=== PATIENT | male | born 1950 | race Caucasian/White ===

== ENCOUNTER 2018-02-03 06:04 | Day surgery (SDC) | payer BC ==
[2018-02-02 11:17] VITALS: BMI 35.4
[2018-02-03 06:35] VITALS: BP 159/81; PULSE 66; TEMP 98.3
== END 2018-02-03 07:27 | disposition home or self-care (01) ==
LOC: JASU-SURG 06:04
PROVIDERS: ATTEND Surgery
PROC: 3E013GC Introduction of Other Therapeutic Substance into Subcutaneous Tissue, Percutaneous Approach (ICD-10-PCS; principal; 2018-02-03)
DX: Z53.8 Procedure and treatment not carried out for other reasons (principal)
CPT/HCPCS: 82962

== ENCOUNTER 2018-08-24 15:22 | Emergency (ER) | payer BC | END 2018-08-24 20:55 | disposition home or self-care (01) | LOC: FER 15:22 ==

== ENCOUNTER 2020-04-28 04:32 | Day surgery (SDC) | payer OTHER, BC ==
[2020-04-26 15:41] VITALS: BMI 34.7
[2020-04-28] MEDS ORDERED: LIDOCAINE HCL/PF 1% SDV 5ML VIAL ONE ×2 (07:25→12:33)
[2020-04-28] MEDS ORDERED: DEXAMETHASONE SOD PHOSPHATE/PF 10 MG/ML SDV ONE (12:31)
[2020-04-28] MEDS ORDERED: IOHEXOL 180 MG/1 ML ML IJ ONE (12:57)
[2020-04-28] MEDS ORDERED: LIDOCAINE HCL 1% PRESERVATIVE FREE - 30ML VIAL NR ONE (12:57)
[2020-04-28] MEDS ORDERED: BUPIVACAINE HCL/PF 0.25% (2.5MG/ML) 10 ML VIAL IJ ONE (12:57)
[2020-04-28 13:42] VITALS: TEMP 98
[2020-04-28 15:08] VITALS: BP 166/89; PULSE 92
== END 2020-04-28 15:00 | disposition home or self-care (01) ==
LOC: JASU-SURG 04:32
PROVIDERS: ATTEND Pain Medicine Pain Medicine
PROC: 3E0T33Z Introduction of Anti-inflammatory into Peripheral Nerves and Plexi, Percutaneous Approach (ICD-10-PCS; 2020-04-28)
PROC: 3E0T3BZ Introduction of Anesthetic Agent into Peripheral Nerves and Plexi, Percutaneous Approach (ICD-10-PCS; principal; 2020-04-28 12:00)
DX: G56.40 Causalgia of unspecified upper limb (principal)
CPT/HCPCS: 76000-TC-FY

== ENCOUNTER 2020-05-08 04:40 | Inpatient (IN) | payer OTHER, BC ==
[2020-05-04 14:50] VITALS: BMI 35.1
[2020-05-08] MEDS ORDERED: HEPARIN NA (PORCINE) 5,000 UNITS/ML 1ML VIAL ONE ×2 (07:06→07:49)
[2020-05-08] MEDS ORDERED: LIDOCAINE HCL 1%, 10 MG/ML (20ML VIAL) ONE (07:06)
[2020-05-08] MEDS ORDERED: DESFLURANE GAS 240 ML BOTTLE IH ONE (07:37)
[2020-05-08] MEDS ORDERED: MIDAZOLAM HCL 2 MG/2 ML SINGLE DOSE VIAL ONE (07:49)
[2020-05-08 08:55] LABS: POTASSIUM 3.9 mmol/L (3.5-5.1)
[2020-05-08 08:57] LABS: CALCIUM 8.3 mg/dL (8.5-10.1)
[2020-05-08 09:01] LABS: CREATININE 0.6 mg/dL (0.55-1.3)
[2020-05-08 09:03] LABS: BILIRUBIN,TOTAL 0.7 mg/dL (0.2-1); TOT PROT 7.2 g/dl (6.4-8.2)
[2020-05-08] MEDS ORDERED: PROPOFOL 20 ML ONE (10:21)
[2020-05-08] MEDS ORDERED: ceFAZolin SODIUM 1 GM VIAL ONE (10:53)
[2020-05-08] MEDS ORDERED: LIDOCAINE HCL 1%, 10 MG/ML (20ML VIAL) NR ONE (11:07)
[2020-05-08] MEDS ORDERED: IOVERSOL 320 MG/ML ML IV ONE (11:08)
[2020-05-08] MEDS ORDERED: morphine SULFATE 4 MG/ML VIAL IVPUSH PRN (12:16)
[2020-05-08] MEDS ORDERED: ONDANSETRON 4 MG/2 ML VIAL IVPUSH PRN (12:24)
[2020-05-08] MEDS ORDERED: LACTATED RINGERS SOLUTION 1,000 ML IV SCH ×2 (12:30→18:08)
[2020-05-08] MEDS: HYDROmorphone HCl 2 MG/ML VIAL IVPUSH ONE ×2 (13:45→15:03)
[2020-05-08] MEDS ORDERED: HYDROmorphone HCl 2 MG/ML VIAL ONE (13:45)
[2020-05-08] MEDS: GABAPENTIN 300 MG CAPSULE PO SCH ×2 (15:13→21:24)
[2020-05-08] MEDS ORDERED: metFORMIN HCL 500 MG TABLET (FP) PO SCH (16:30)
[2020-05-08] MEDS ORDERED: VANCOMYCIN 1,000 MG in DEXTROSE 5%-WATER - 250 ML IVPB SCH (17:00)
[2020-05-08] MEDS: INSULIN SLIDING SCALE (NOVOLOG) 1 VIAL SQ SCH ×2 (18:05→21:30)
[2020-05-08] MEDS ORDERED: PIPERACILLIN/TAZOBACTAM 3.375 GM VIAL IVPB ONE (18:08)
[2020-05-08] MEDS ORDERED: DEXTROSE 5%-WATER - 50 ML IVPB ONE (18:08)
[2020-05-08] MEDS ORDERED: traMADol HCL 50 MG TABLET PO PRN (18:11)
[2020-05-08] MEDS ORDERED: ACETAMINOPHEN 325 MG TABLET (FP) PO PRN (18:11)
[2020-05-08] MEDS: PIPERACILLIN/TAZOB 3.375 GM 3.375 GM in DEXTROSE 5%-WATER - 50 ML IVPB SCH (18:14)
[2020-05-08] MEDS: VANCOMYCIN 1 GRAM (PRE-DOCKED) 1,000 MG/250 ML BAG IVPB SCH (18:20)
[2020-05-08] MEDS ORDERED: diphenhydrAMINE HCL 25 MG CAPSULE (FP) PO ONE (21:10)
[2020-05-08] MEDS: HEPARIN NA (PORCINE) 5,000 UNITS/ML 1ML VIAL SQ SCH (21:24)
[2020-05-08] MEDS ORDERED: ATORVASTATIN CA 80 MG TABLET (FP) PO SCH (22:00)
[2020-05-08] MEDS: morphine SULFATE 4 MG/ML VIAL IVPUSH PRN (22:29)
[2020-05-09] MEDS ORDERED: DEXTROSE 5%-WATER - 50 ML IVPB ONE ×2 (00:31→08:51)
[2020-05-09] MEDS ORDERED: PIPERACILLIN/TAZOBACTAM 3.375 GM VIAL IVPB ONE ×2 (00:31→08:51)
[2020-05-09] MEDS: PIPERACILLIN/TAZOB 3.375 GM 3.375 GM in DEXTROSE 5%-WATER - 50 ML IVPB SCH ×2 (01:23→09:01)
[2020-05-09] MEDS: VANCOMYCIN 1 GRAM (PRE-DOCKED) 1,000 MG/250 ML BAG IVPB SCH (04:35)
[2020-05-09] MEDS: morphine SULFATE 4 MG/ML VIAL IVPUSH PRN ×2 (04:40→11:35)
[2020-05-09] MEDS: GABAPENTIN 300 MG CAPSULE PO SCH ×2 (05:53→14:01)
[2020-05-09] MEDS ORDERED: diphenhydrAMINE HCL 25 MG CAPSULE (FP) PO ONE (05:57)
[2020-05-09] MEDS: INSULIN SLIDING SCALE (NOVOLOG) 1 VIAL SQ SCH ×3 (06:19→17:33)
[2020-05-09 07:42] VITALS: PULSE 99
[2020-05-09 08:18] LABS: BASO % 0.3 % (0-2.0); EOS % 1.1 % (0-4.5); HEMATOCRIT 29.9 % (35.4-49); HEMOGLOBIN 9.9 GM/dL (11.7-16.9); LYMPH % 18.9 % (8-40); MCH 26.5 pg (25.7-33.7); MCHC 33.1 g/dl (32.0-35.9); MEAN CELL VOLUME 79.8 fl (80-96); MEAN PLT VOLUME 7.5 fl (7.5-11.1); MONO % 9.9 % (3.8-10.2); NEUT % 69.8 % (42.8-82.8); PLATELET COUNT 347 K/MM3 (134-434); RBC 3.74 M/mm3 (4.00-5.60); RDW 15.9 % (11.9-15.9); WHITE BLOOD COUNT 8.2 K/mm3 (4.0-10.0)
[2020-05-09 08:36] LABS: ALBUMIN 2.9 g/dl (3.4-5.0); BLOOD UREA NITROGEN 15.8 mg/dL (7-18); CALCIUM 8.6 mg/dL (8.5-10.1)
[2020-05-09 08:37] LABS: POTASSIUM 3.9 mmol/L (3.5-5.1)
[2020-05-09 08:39] LABS: CREATININE 0.7 mg/dL (0.55-1.3)
[2020-05-09 08:41] LABS: BILIRUBIN,TOTAL 0.8 mg/dL (0.2-1)
[2020-05-09] MEDS ORDERED: PT OWN MED DRAWER 7, Y5N ONE (08:51)
[2020-05-09] MEDS: HEPARIN NA (PORCINE) 5,000 UNITS/ML 1ML VIAL SQ SCH (09:00)
[2020-05-09] MEDS ORDERED: COLLAGENASE CLOSTRIDIUM HIST. 30 GRAMS TUBE TP SCH (10:00)
[2020-05-09] MEDS ORDERED: LOSARTAN POTASSIUM 50 MG TABLET PO SCH (10:00)
[2020-05-09] MEDS ORDERED: GENTAMICIN SO4 0.1% TOPICAL OINTMENT 15 GM/TUBE TUBE TP SCH (10:00)
[2020-05-09] MEDS ORDERED: ASPIRIN COATED 81 MG TABLET.EC PO SCH (10:00)
[2020-05-09] MEDS ORDERED: POLYETHYLENE GLYCOL 3350 119 GM BTL PO SCH (11:45)
[2020-05-09] MEDS ORDERED: DOCUSATE SODIUM 100 MG CAPSULE (FP) PO SCH (11:45)
[2020-05-09] MEDS ORDERED: diphenhydrAMINE HCL 25 MG CAPSULE (FP) PO PRN (15:30)
[2020-05-09 20:17] VITALS: BP 124/72; TEMP 98.2
[2020-05-09] MEDS ORDERED: SENNOSIDES 8.6MG TABLET (FP) PO SCH (22:00)
== END 2020-05-09 18:31 | disposition left against medical advice (07) | DRG 253 ==
LOC: JASU-SURG 04:40 → J2C 07:50 → J8W 14:23
PROVIDERS: ADMIT Family Medicine; ATTEND Family Medicine
PROC: 0JBN0ZZ Excision of Right Lower Leg Subcutaneous Tissue and Fascia, Open Approach (ICD-10-PCS; 2020-05-08)
PROC: B40GYZZ Plain Radiography of Left Lower Extremity Arteries using Other Contrast (ICD-10-PCS; 2020-05-08)
PROC: B40FYZZ Plain Radiography of Right Lower Extremity Arteries using Other Contrast (ICD-10-PCS; 2020-05-08)
PROC: 047S3ZZ Dilation of Left Posterior Tibial Artery, Percutaneous Approach (ICD-10-PCS; principal; 2020-05-08 07:30)
PROC: 0JBP0ZZ Excision of Left Lower Leg Subcutaneous Tissue and Fascia, Open Approach (ICD-10-PCS; 2020-05-08 07:30)
DX: E11.51 Type 2 diabetes mellitus with diabetic peripheral angiopathy without gangrene (principal); L97.929 Non-pressure chronic ulcer of unspecified part of left lower leg with unspecified severity; L97.919 Non-pressure chronic ulcer of unspecified part of right lower leg with unspecified severity; E11.621 Type 2 diabetes mellitus with foot ulcer; I25.10 Atherosclerotic heart disease of native coronary artery without angina pectoris
CPT/HCPCS: 36415; 76000-TC-FY; 80053; 82962; 83036; 85025; 87040; 87070; 87076; 87186; 87205; 88304-TC; 94760; J1644

== ENCOUNTER 2020-06-01 04:11 | Day surgery (SDC) | payer OTHER, BC ==
[2020-05-31 09:25] VITALS: BMI 34.7
[2020-06-01] MEDS ORDERED: PROPOFOL 20 ML ONE ×5 (06:42→08:21)
[2020-06-01] MEDS ORDERED: KETAMINE HCL 200 MG/20 ML VIAL ONE (06:44)
[2020-06-01] MEDS ORDERED: LIDOCAINE HCL 1%, 10 MG/ML (20ML VIAL) ONE (07:24)
[2020-06-01] MEDS ORDERED: ceFAZolin 2 GRAM PREMIX BAG IVPB ONE (08:20)
[2020-06-01] MEDS ORDERED: LIDOCAINE HCL 1%, 10 MG/ML (20ML VIAL) SQ ONE (08:40)
[2020-06-01 11:09] VITALS: TEMP 98.1
[2020-06-01] MEDS ORDERED: ONDANSETRON 4 MG/2 ML VIAL IVPUSH PRN (11:36)
[2020-06-01] MEDS ORDERED: oxyCODONE HCL 5 MG TABLET PO PRN (11:36)
[2020-06-01 12:42] VITALS: BP 170/65; PULSE 88
== END 2020-06-01 12:00 | disposition home or self-care (01) ==
LOC: JASU-SURG 04:11
PROVIDERS: ATTEND Surgery Vascular Surgery
PROC: 0JBQ0ZZ Excision of Right Foot Subcutaneous Tissue and Fascia, Open Approach (ICD-10-PCS; 2020-06-01)
PROC: 0JBR0ZZ Excision of Left Foot Subcutaneous Tissue and Fascia, Open Approach (ICD-10-PCS; principal; 2020-06-01 07:30)
DX: E11.621 Type 2 diabetes mellitus with foot ulcer (principal); L97.523 Non-pressure chronic ulcer of other part of left foot with necrosis of muscle; L97.519 Non-pressure chronic ulcer of other part of right foot with unspecified severity; I70.263 Atherosclerosis of native arteries of extremities with gangrene, bilateral legs; I10 Essential (primary) hypertension
CPT/HCPCS: 82962; 94760

== ENCOUNTER 2020-10-04 05:17 | Inpatient (IN) | payer OTHER, BC ==
[2020-10-03 12:10] VITALS: BMI 33.2
[2020-10-04] MEDS ORDERED: LIDOCAINE 1%/EPI 1:100000 (20 ML MULTI DOSE VIAL) ONE (11:57)
[2020-10-04] MEDS ORDERED: ceFAZolin SODIUM 1 GM VIAL ONE (12:29)
[2020-10-04] MEDS ORDERED: LIDOCAINE HCL/PF 2% SDV 5ML VIAL ONE (12:29)
[2020-10-04] MEDS ORDERED: ONDANSETRON 4 MG/2 ML VIAL IVPUSH PRN ×2 (13:55→16:49)
[2020-10-04] MEDS ORDERED: oxyCODONE HCL 5 MG TABLET PO PRN (13:55)
[2020-10-04] MEDS ORDERED: ACETAMINOPHEN INJECTION 100 ML IVPB ONE (14:07)
[2020-10-04] MEDS ORDERED: DEXMEDETOMIDINE HCL 200 MCG/2 ML IVPB ONE (14:08)
[2020-10-04] MEDS ORDERED: LIDOCAINE HCL 2% JELLY 10 ML CARTRIDGE ONE (14:33)
[2020-10-04] MEDS ORDERED: ceFAZolin 2 GRAM PREMIX BAG IVPB ONE (14:49)
[2020-10-04] MEDS ORDERED: MINERAL OIL 25 ML OIL TP ONE (15:25)
[2020-10-04] MEDS ORDERED: BACITRACIN 50,000 UNITS VIAL TP ONE (15:30)
[2020-10-04] MEDS ORDERED: PROMETHAZINE HCL 25 MG/1 ML VIAL IVPUSH PRN (16:49)
[2020-10-04] MEDS ORDERED: LACTATED RINGERS SOLUTION 1,000 ML IV SCH (17:00)
[2020-10-04] MEDS: INSULIN SLIDING SCALE (NOVOLOG) 1 VIAL SQ SCH (18:02)
[2020-10-04] MEDS: oxyCODONE HCL 5 MG TABLET PO PRN (21:27)
[2020-10-04] MEDS: metFORMIN HCL 500 MG TABLET (FP) PO SCH (21:28)
[2020-10-05] MEDS: INSULIN SLIDING SCALE (NOVOLOG) 1 VIAL SQ SCH ×3 (06:19→18:01)
[2020-10-05] MEDS ORDERED: PATIENT'S OWN MEDICATION (NON-FORMULARY) (Nifedipine [Nifedipine Er] 60 MG Tab.Er.24) PO SCH (10:00)
[2020-10-05] MEDS ORDERED: PATIENT'S OWN MEDICATION (NON-FORMULARY) (Losartan Potassium [Losartan Potassium] 100 MG T PO SCH (10:00)
[2020-10-05] MEDS: LOSARTAN POTASSIUM 50 MG TABLET PO SCH (10:10)
[2020-10-05] MEDS: NIFEdipine E.R 60 MG TABLET PO SCH (10:10)
[2020-10-05] MEDS: DOCUSATE SODIUM 100 MG CAPSULE (FP) PO SCH (10:10)
[2020-10-05] MEDS: metFORMIN HCL 500 MG TABLET (FP) PO SCH ×2 (10:10→21:55)
[2020-10-05 15:41] LABS: BLOOD UREA NITROGEN 14.8 mg/dL (7-18); CALCIUM 8.5 mg/dL (8.5-10.1)
[2020-10-05 15:45] LABS: CREATININE 0.7 mg/dL (0.55-1.3)
[2020-10-05] MEDS: oxyCODONE HCL 5 MG TABLET PO PRN (21:41)
[2020-10-05] MEDS: ATORVASTATIN CA 80 MG TABLET (FP) PO SCH (21:41)
[2020-10-06 00:37] LABS: URINE APPEARANCE CLEAR; URINE BILIRUBIN NEGATIVE (NEGATIVE); URINE COLOR YELLOW; URINE GLUCOSE (UA) NEGATIVE (NEGATIVE); URINE KETONE NEGATIVE (NEGATIVE); URINE LEUK ESTERASE NEGATIVE (NEGATIVE); URINE NITRITE NEGATIVE (NEGATIVE); URINE PROTEIN NEGATIVE (NEGATIVE)
[2020-10-06] MEDS: metFORMIN HCL 500 MG TABLET (FP) PO SCH ×2 (06:39→21:30)
[2020-10-06] MEDS: INSULIN SLIDING SCALE (NOVOLOG) 1 VIAL SQ SCH ×3 (06:40→16:31)
[2020-10-06 09:20] LABS: HEMATOCRIT 35.6 % (35.4-49); HEMOGLOBIN 11.5 GM/dL (11.7-16.9); MCH 26.3 pg (25.7-33.7); MCHC 32.3 g/dl (32.0-35.9); MEAN CELL VOLUME 81.6 fl (80-96); MEAN PLT VOLUME 7.8 fl (7.5-11.1); PLATELET COUNT 232 10^3/uL (134-434); RBC 4.36 M/mm3 (4.00-5.60); RDW 15.7 % (11.9-15.9); WHITE BLOOD COUNT 5.6 K/mm3 (4.0-10.0)
[2020-10-06 09:40] LABS: CALCIUM 8.7 mg/dL (8.5-10.1)
[2020-10-06 09:41] LABS: ALBUMIN 3.2 g/dl (3.4-5.0); BLOOD UREA NITROGEN 12.9 mg/dL (7-18)
[2020-10-06 09:44] LABS: CREATININE 0.8 mg/dL (0.55-1.3)
[2020-10-06 09:45] LABS: BILIRUBIN,TOTAL 0.6 mg/dL (0.2-1); TOT PROT 6.9 g/dl (6.4-8.2)
[2020-10-06] MEDS: DOCUSATE SODIUM 100 MG CAPSULE (FP) PO SCH (09:51)
[2020-10-06] MEDS: NIFEdipine E.R 60 MG TABLET PO SCH (09:52)
[2020-10-06] MEDS: LOSARTAN POTASSIUM 50 MG TABLET PO SCH (09:52)
[2020-10-06] MEDS: ASCORBIC ACID 250 MG TABLET (FP) PO SCH (21:30)
[2020-10-06] MEDS: ATORVASTATIN CA 80 MG TABLET (FP) PO SCH (21:30)
[2020-10-06] MEDS: ZINC OXIDE 20% TOPICAL OINTMENT 30 GM TUBE TP SCH (21:31)
[2020-10-06] MEDS: oxyCODONE HCL 5 MG TABLET PO PRN (21:35)
[2020-10-07] MEDS: metFORMIN HCL 500 MG TABLET (FP) PO SCH ×2 (06:02→21:44)
[2020-10-07] MEDS: INSULIN SLIDING SCALE (NOVOLOG) 1 VIAL SQ SCH ×3 (06:03→17:09)
[2020-10-07] MEDS: AMINO ACIDS/PROTEIN HYDROLYS 30 ML LIQUID.PKT PO SCH ×2 (08:36→17:53)
[2020-10-07] MEDS ORDERED: PT OWN MED DRAWER 7, Y5N ONE ×2 (09:47→10:46)
[2020-10-07] MEDS: DOCUSATE SODIUM 100 MG CAPSULE (FP) PO SCH (10:05)
[2020-10-07] MEDS: NIFEdipine E.R 60 MG TABLET PO SCH (10:05)
[2020-10-07] MEDS: ASCORBIC ACID 250 MG TABLET (FP) PO SCH ×2 (10:05→21:44)
[2020-10-07] MEDS: MULTIVITAMINS (DAILY MVI) TABLET (FP) PO SCH (10:05)
[2020-10-07] MEDS: LOSARTAN POTASSIUM 50 MG TABLET PO SCH (10:05)
[2020-10-07] MEDS: ZINC OXIDE 20% TOPICAL OINTMENT 30 GM TUBE TP SCH ×2 (10:06→21:56)
[2020-10-07] MEDS ORDERED: NIFEdipine E.R. 90 MG TABLET PO SCH (14:25)
[2020-10-07] MEDS: ATORVASTATIN CA 80 MG TABLET (FP) PO SCH (21:44)
[2020-10-07] MEDS ORDERED: oxyCODONE HCL 5 MG TABLET PO PRN (22:20)
[2020-10-07] MEDS: oxyCODONE HCL 5 MG TABLET PO PRN (22:32)
[2020-10-08] MEDS: metFORMIN HCL 500 MG TABLET (FP) PO SCH ×2 (06:39→22:13)
[2020-10-08] MEDS: INSULIN SLIDING SCALE (NOVOLOG) 1 VIAL SQ SCH ×3 (06:39→17:39)
[2020-10-08] MEDS: AMINO ACIDS/PROTEIN HYDROLYS 30 ML LIQUID.PKT PO SCH ×2 (08:05→18:17)
[2020-10-08 09:00] LABS: BASO % 0.7 % (0-2.0); EOS % 2.8 % (0-4.5); HEMATOCRIT 38.3 % (35.4-49); HEMOGLOBIN 12.4 GM/dL (11.7-16.9); LYMPH % 26.3 % (8-40); MCH 26.1 pg (25.7-33.7); MCHC 32.4 g/dl (32.0-35.9); MEAN CELL VOLUME 80.5 fl (80-96); MEAN PLT VOLUME 7.4 fl (7.5-11.1); MONO % 8.4 % (3.8-10.2); NEUT % 61.8 % (42.8-82.8); PLATELET COUNT 293 10^3/uL (134-434); RBC 4.76 M/mm3 (4.00-5.60); RDW 15.8 % (11.9-15.9); WHITE BLOOD COUNT 8.6 K/mm3 (4.0-10.0)
[2020-10-08 09:13] LABS: INR 1.18 (0.83-1.09); PROTHROMBIN TIME (PATIENT) 14.4 SEC (9.7-13.0)
[2020-10-08 09:15] LABS: ACTIVATED PTT 30.9 SECONDS (25.2-36.5)
[2020-10-08 09:20] LABS: ALBUMIN 3.3 g/dl (3.4-5.0); BLOOD UREA NITROGEN 19.4 mg/dL (7-18); CALCIUM 8.8 mg/dL (8.5-10.1)
[2020-10-08] MEDS ORDERED: PT OWN MED DRAWER 7, Y5N ONE (09:21)
[2020-10-08 09:23] LABS: CREATININE 0.8 mg/dL (0.55-1.3)
[2020-10-08 09:25] LABS: BILIRUBIN,TOTAL 0.6 mg/dL (0.2-1); TOT PROT 7.2 g/dl (6.4-8.2)
[2020-10-08] MEDS: ASCORBIC ACID 250 MG TABLET (FP) PO SCH ×2 (09:33→22:13)
[2020-10-08] MEDS: ZINC OXIDE 20% TOPICAL OINTMENT 30 GM TUBE TP SCH (09:34)
[2020-10-08] MEDS: MULTIVITAMINS (DAILY MVI) TABLET (FP) PO SCH (09:34)
[2020-10-08] MEDS: DOCUSATE SODIUM 100 MG CAPSULE (FP) PO SCH (09:34)
[2020-10-08] MEDS: LOSARTAN POTASSIUM 50 MG TABLET PO SCH (09:34)
[2020-10-08] MEDS: ENOXAPARIN NA (PORCINE) 100 MG/1 ML DISP.SYRIN SQ SCH ×2 (09:55→22:17)
[2020-10-08] MEDS ORDERED: METOPROLOL TARTRATE 25 MG TABLET (FP) PO SCH (10:00)
[2020-10-08] MEDS: ATORVASTATIN CA 80 MG TABLET (FP) PO SCH (22:13)
[2020-10-08] MEDS: METOPROLOL TARTRATE 50 MG TABLET (FP) PO SCH (22:13)
[2020-10-08] MEDS: oxyCODONE HCL 5 MG TABLET PO PRN (22:17)
[2020-10-09] MEDS: INSULIN SLIDING SCALE (NOVOLOG) 1 VIAL SQ SCH ×3 (06:00→16:10)
[2020-10-09] MEDS: metFORMIN HCL 500 MG TABLET (FP) PO SCH ×2 (06:00→22:18)
[2020-10-09] MEDS: ZINC OXIDE 20% TOPICAL OINTMENT 30 GM TUBE TP SCH ×3 (06:12→22:19)
[2020-10-09] MEDS ORDERED: PT OWN MED DRAWER 7, Y5N ONE ×2 (10:24→21:37)
[2020-10-09] MEDS: AMINO ACIDS/PROTEIN HYDROLYS 30 ML LIQUID.PKT PO SCH ×2 (10:28→17:13)
[2020-10-09] MEDS: MULTIVITAMINS (DAILY MVI) TABLET (FP) PO SCH (10:28)
[2020-10-09] MEDS: ASCORBIC ACID 250 MG TABLET (FP) PO SCH ×2 (10:28→22:19)
[2020-10-09] MEDS: METOPROLOL TARTRATE 50 MG TABLET (FP) PO SCH ×2 (10:28→22:19)
[2020-10-09] MEDS: LOSARTAN POTASSIUM 50 MG TABLET PO SCH (10:28)
[2020-10-09] MEDS: DOCUSATE SODIUM 100 MG CAPSULE (FP) PO SCH (10:28)
[2020-10-09] MEDS: ENOXAPARIN NA (PORCINE) 100 MG/1 ML DISP.SYRIN SQ SCH ×2 (10:36→22:18)
[2020-10-09] MEDS ORDERED: ALPRAZolam 1 MG TABLET PO PRN (13:48)
[2020-10-09] MEDS ORDERED: SODIUM PHOSPHATE/NA BIPHOS 133 ML ENEMA PR ONE (20:27)
[2020-10-09] MEDS: ATORVASTATIN CA 80 MG TABLET (FP) PO SCH (22:19)
[2020-10-09] MEDS: oxyCODONE HCL 5 MG TABLET PO PRN (22:19)
[2020-10-10] MEDS: metFORMIN HCL 500 MG TABLET (FP) PO SCH ×2 (06:16→17:02)
[2020-10-10] MEDS: INSULIN SLIDING SCALE (NOVOLOG) 1 VIAL SQ SCH ×3 (06:18→17:12)
[2020-10-10] MEDS ORDERED: ONDANSETRON 4 MG/2 ML VIAL IVPUSH PRN (07:11)
[2020-10-10] MEDS ORDERED: ALPRAZolam 1 MG TABLET PO PRN (07:11)
[2020-10-10] MEDS: AMINO ACIDS/PROTEIN HYDROLYS 30 ML LIQUID.PKT PO SCH ×2 (08:44→17:02)
[2020-10-10] MEDS ORDERED: PT OWN MED DRAWER 7, Y5N ONE ×2 (09:44→21:06)
[2020-10-10] MEDS: POLYETHYLENE GLYCOL (HEALTHYLAX) 3350 17 GM PACKET PO SCH (09:46)
[2020-10-10] MEDS: ASCORBIC ACID 250 MG TABLET (FP) PO SCH ×2 (09:46→22:07)
[2020-10-10] MEDS: METOPROLOL TARTRATE 25 MG TABLET (FP) PO SCH ×2 (09:46→22:07)
[2020-10-10] MEDS: DOCUSATE SODIUM 100 MG CAPSULE (FP) PO SCH (09:46)
[2020-10-10] MEDS: ENOXAPARIN NA (PORCINE) 100 MG/1 ML DISP.SYRIN SQ SCH ×2 (09:46→22:14)
[2020-10-10] MEDS: MULTIVITAMINS (DAILY MVI) TABLET (FP) PO SCH (09:47)
[2020-10-10] MEDS: LOSARTAN POTASSIUM 50 MG TABLET PO SCH (09:47)
[2020-10-10] MEDS: ZINC OXIDE 20% TOPICAL OINTMENT 30 GM TUBE TP SCH ×3 (09:48→22:15)
[2020-10-10 10:26] LABS: HEMATOCRIT 40.3 % (35.4-49); HEMOGLOBIN 13.2 GM/dL (11.7-16.9); MCH 26.5 pg (25.7-33.7); MCHC 32.8 g/dl (32.0-35.9); MEAN CELL VOLUME 80.9 fl (80-96); MEAN PLT VOLUME 7.8 fl (7.5-11.1); PLATELET COUNT 328 10^3/uL (134-434); RBC 4.99 M/mm3 (4.00-5.60); RDW 15.6 % (11.9-15.9); WHITE BLOOD COUNT 8.4 K/mm3 (4.0-10.0)
[2020-10-10 10:37] LABS: INR 1.16 (0.83-1.09); PROTHROMBIN TIME (PATIENT) 14.2 SEC (9.7-13.0)
[2020-10-10 10:50] LABS: CHLORIDE 104 mmol/L (98-107); SODIUM 137 mmol/L (136-145)
[2020-10-10 10:52] LABS: BLOOD UREA NITROGEN 21.7 mg/dL (7-18); CALCIUM 8.9 mg/dL (8.5-10.1)
[2020-10-10 10:53] LABS: ANION GAP 8 MMOL/L (8-16); CO2 25 mmol/L (21-32); GLUCOSE,RANDOM 133 mg/dL (74-106)
[2020-10-10 10:56] LABS: CREATININE 0.8 mg/dL (0.55-1.3)
[2020-10-10] MEDS: oxyCODONE HCL 5 MG TABLET PO PRN (22:07)
[2020-10-10] MEDS: ATORVASTATIN CA 80 MG TABLET (FP) PO SCH (22:07)
[2020-10-11] MEDS: INSULIN SLIDING SCALE (NOVOLOG) 1 VIAL SQ SCH ×3 (06:00→16:40)
[2020-10-11] MEDS: metFORMIN HCL 500 MG TABLET (FP) PO SCH ×2 (06:00→16:40)
[2020-10-11] MEDS: AMINO ACIDS/PROTEIN HYDROLYS 30 ML LIQUID.PKT PO SCH ×2 (07:49→16:40)
[2020-10-11] MEDS ORDERED: PT OWN MED DRAWER 7, Y5N ONE ×2 (10:10→21:01)
[2020-10-11] MEDS: LOSARTAN POTASSIUM 50 MG TABLET PO SCH (10:11)
[2020-10-11] MEDS: POLYETHYLENE GLYCOL (HEALTHYLAX) 3350 17 GM PACKET PO SCH ×2 (10:11→10:18)
[2020-10-11] MEDS: MULTIVITAMINS (DAILY MVI) TABLET (FP) PO SCH (10:11)
[2020-10-11] MEDS: METOPROLOL TARTRATE 25 MG TABLET (FP) PO SCH ×2 (10:12→21:40)
[2020-10-11] MEDS: ZINC OXIDE 20% TOPICAL OINTMENT 30 GM TUBE TP SCH ×2 (10:12→21:41)
[2020-10-11] MEDS: DOCUSATE SODIUM 100 MG CAPSULE (FP) PO SCH (10:12)
[2020-10-11] MEDS: ASCORBIC ACID 250 MG TABLET (FP) PO SCH ×2 (10:12→21:41)
[2020-10-11] MEDS: ENOXAPARIN NA (PORCINE) 100 MG/1 ML DISP.SYRIN SQ SCH ×2 (10:18→21:41)
[2020-10-11] MEDS: oxyCODONE HCL 5 MG TABLET PO PRN (19:04)
[2020-10-11] MEDS: ATORVASTATIN CA 80 MG TABLET (FP) PO SCH (21:40)
[2020-10-12] MEDS: INSULIN SLIDING SCALE (NOVOLOG) 1 VIAL SQ SCH ×3 (06:45→17:06)
[2020-10-12] MEDS: metFORMIN HCL 500 MG TABLET (FP) PO SCH ×2 (06:45→17:32)
[2020-10-12] MEDS: AMINO ACIDS/PROTEIN HYDROLYS 30 ML LIQUID.PKT PO SCH ×2 (08:45→17:32)
[2020-10-12] MEDS ORDERED: PT OWN MED DRAWER 7, Y5N ONE ×2 (09:26→21:02)
[2020-10-12] MEDS: LOSARTAN POTASSIUM 50 MG TABLET PO SCH (09:29)
[2020-10-12] MEDS: POLYETHYLENE GLYCOL (HEALTHYLAX) 3350 17 GM PACKET PO SCH (09:29)
[2020-10-12] MEDS: DOCUSATE SODIUM 100 MG CAPSULE (FP) PO SCH (09:29)
[2020-10-12] MEDS: ENOXAPARIN NA (PORCINE) 100 MG/1 ML DISP.SYRIN SQ SCH ×2 (09:30→21:13)
[2020-10-12] MEDS: ASCORBIC ACID 250 MG TABLET (FP) PO SCH ×2 (09:30→21:14)
[2020-10-12] MEDS: MULTIVITAMINS (DAILY MVI) TABLET (FP) PO SCH (09:30)
[2020-10-12] MEDS: METOPROLOL TARTRATE 25 MG TABLET (FP) PO SCH ×2 (09:30→21:14)
[2020-10-12] MEDS: ZINC OXIDE 20% TOPICAL OINTMENT 30 GM TUBE TP SCH ×2 (17:06→21:14)
[2020-10-12] MEDS: oxyCODONE HCL 5 MG TABLET PO PRN (21:14)
[2020-10-12] MEDS: ATORVASTATIN CA 80 MG TABLET (FP) PO SCH (21:14)
[2020-10-13] MEDS: INSULIN SLIDING SCALE (NOVOLOG) 1 VIAL SQ SCH ×3 (06:04→16:40)
[2020-10-13] MEDS: metFORMIN HCL 500 MG TABLET (FP) PO SCH ×2 (06:10→16:38)
[2020-10-13] MEDS ORDERED: PT OWN MED DRAWER 7, Y5N ONE (08:47)
[2020-10-13] MEDS: MULTIVITAMINS (DAILY MVI) TABLET (FP) PO SCH (09:04)
[2020-10-13] MEDS: AMINO ACIDS/PROTEIN HYDROLYS 30 ML LIQUID.PKT PO SCH ×2 (09:04→16:39)
[2020-10-13] MEDS: POLYETHYLENE GLYCOL (HEALTHYLAX) 3350 17 GM PACKET PO SCH (09:04)
[2020-10-13] MEDS: DOCUSATE SODIUM 100 MG CAPSULE (FP) PO SCH (09:04)
[2020-10-13] MEDS: ENOXAPARIN NA (PORCINE) 100 MG/1 ML DISP.SYRIN SQ SCH ×2 (09:04→22:18)
[2020-10-13] MEDS: ASCORBIC ACID 250 MG TABLET (FP) PO SCH ×2 (09:04→22:18)
[2020-10-13] MEDS: ZINC OXIDE 20% TOPICAL OINTMENT 30 GM TUBE TP SCH ×2 (09:05→22:19)
[2020-10-13] MEDS: SERTRALINE HCL 25 MG TABLET (FP) PO SCH (09:05)
[2020-10-13] MEDS: LOSARTAN POTASSIUM 50 MG TABLET PO SCH (09:05)
[2020-10-13] MEDS: ATORVASTATIN CA 80 MG TABLET (FP) PO SCH (22:18)
[2020-10-13] MEDS: oxyCODONE HCL 5 MG TABLET PO PRN (22:21)
[2020-10-13] MEDS: VANCOMYCIN 1 GRAM (PRE-DOCKED) 1,000 MG/250 ML BAG IVPB SCH (23:10)
[2020-10-14] MEDS: metFORMIN HCL 500 MG TABLET (FP) PO SCH ×2 (06:17→17:08)
[2020-10-14] MEDS: INSULIN SLIDING SCALE (NOVOLOG) 1 VIAL SQ SCH ×3 (06:19→17:08)
[2020-10-14] MEDS: AMINO ACIDS/PROTEIN HYDROLYS 30 ML LIQUID.PKT PO SCH ×2 (08:06→17:08)
[2020-10-14] MEDS: VANCOMYCIN 1 GRAM (PRE-DOCKED) 1,000 MG/250 ML BAG IVPB SCH ×3 (08:06→22:03)
[2020-10-14] MEDS ORDERED: PT OWN MED DRAWER 7, Y5N ONE ×2 (10:33→21:47)
[2020-10-14] MEDS: LOSARTAN POTASSIUM 50 MG TABLET PO SCH (10:52)
[2020-10-14] MEDS: SERTRALINE HCL 25 MG TABLET (FP) PO SCH (10:52)
[2020-10-14] MEDS: ASCORBIC ACID 250 MG TABLET (FP) PO SCH ×2 (10:52→21:49)
[2020-10-14] MEDS: MULTIVITAMINS (DAILY MVI) TABLET (FP) PO SCH (10:52)
[2020-10-14] MEDS: DOCUSATE SODIUM 100 MG CAPSULE (FP) PO SCH (10:52)
[2020-10-14] MEDS: ENOXAPARIN NA (PORCINE) 100 MG/1 ML DISP.SYRIN SQ SCH ×2 (10:53→21:49)
[2020-10-14] MEDS: POLYETHYLENE GLYCOL (HEALTHYLAX) 3350 17 GM PACKET PO SCH (10:53)
[2020-10-14] MEDS: ZINC OXIDE 20% TOPICAL OINTMENT 30 GM TUBE TP SCH ×2 (10:54→21:49)
[2020-10-14] MEDS: diphenhydrAMINE HCL 25 MG CAPSULE (FP) PO PRN (11:35)
[2020-10-14] MEDS: ATORVASTATIN CA 80 MG TABLET (FP) PO SCH (21:49)
[2020-10-15] MEDS: INSULIN SLIDING SCALE (NOVOLOG) 1 VIAL SQ SCH ×3 (06:06→17:08)
[2020-10-15] MEDS: metFORMIN HCL 500 MG TABLET (FP) PO SCH ×2 (06:09→17:08)
[2020-10-15 08:09] LABS: HEMATOCRIT 36.4 % (35.4-49); HEMOGLOBIN 11.8 GM/dL (11.7-16.9); MCH 26.3 pg (25.7-33.7); MCHC 32.5 g/dl (32.0-35.9); MEAN CELL VOLUME 81.1 fl (80-96); PLATELET COUNT 238 10^3/uL (134-434); RBC 4.49 M/mm3 (4.00-5.60); RDW 15.4 % (11.9-15.9); WHITE BLOOD COUNT 6.6 K/mm3 (4.0-10.0)
[2020-10-15 08:26] LABS: CALCIUM 8.9 mg/dL (8.5-10.1)
[2020-10-15 08:27] LABS: ALBUMIN 3.4 g/dl (3.4-5.0); BLOOD UREA NITROGEN 15.4 mg/dL (7-18); MAGNESIUM 2.1 mg/dL (1.8-2.4)
[2020-10-15 08:30] LABS: CREATININE 0.7 mg/dL (0.55-1.3); PHOSPHOROUS 3.9 mg/dL (2.5-4.9)
[2020-10-15 08:31] LABS: BILIRUBIN,TOTAL 0.4 mg/dL (0.2-1); TOT PROT 6.9 g/dl (6.4-8.2)
[2020-10-15] MEDS ORDERED: PT OWN MED DRAWER 7, Y5N ONE (09:09)
[2020-10-15] MEDS: AMINO ACIDS/PROTEIN HYDROLYS 30 ML LIQUID.PKT PO SCH ×2 (09:11→17:54)
[2020-10-15] MEDS: VANCOMYCIN 1 GRAM (PRE-DOCKED) 1,000 MG/250 ML BAG IVPB SCH ×2 (09:12→22:13)
[2020-10-15] MEDS: DOCUSATE SODIUM 100 MG CAPSULE (FP) PO SCH (09:15)
[2020-10-15] MEDS: LOSARTAN POTASSIUM 50 MG TABLET PO SCH (09:15)
[2020-10-15] MEDS: POLYETHYLENE GLYCOL (HEALTHYLAX) 3350 17 GM PACKET PO SCH ×2 (09:16→09:24)
[2020-10-15] MEDS: ENOXAPARIN NA (PORCINE) 100 MG/1 ML DISP.SYRIN SQ SCH ×2 (09:16→09:24)
[2020-10-15] MEDS: ASCORBIC ACID 250 MG TABLET (FP) PO SCH ×2 (09:16→22:13)
[2020-10-15] MEDS: MULTIVITAMINS (DAILY MVI) TABLET (FP) PO SCH (09:16)
[2020-10-15] MEDS: SERTRALINE HCL 25 MG TABLET (FP) PO SCH (09:17)
[2020-10-15] MEDS: ZINC OXIDE 20% TOPICAL OINTMENT 30 GM TUBE TP SCH ×2 (09:17→22:13)
[2020-10-15] MEDS ORDERED: APIXABAN 5 MG TABLET PO SCH ×2 (10:00)
[2020-10-15] MEDS: APIXABAN 5 MG TABLET PO SCH (22:13)
[2020-10-15] MEDS: ATORVASTATIN CA 80 MG TABLET (FP) PO SCH (22:13)
[2020-10-15] MEDS: oxyCODONE HCL 5 MG TABLET PO PRN (22:15)
[2020-10-16] MEDS: INSULIN SLIDING SCALE (NOVOLOG) 1 VIAL SQ SCH ×3 (06:38→17:39)
[2020-10-16] MEDS: metFORMIN HCL 500 MG TABLET (FP) PO SCH ×2 (06:43→17:40)
[2020-10-16 08:12] LABS: HEMATOCRIT 35.2 % (35.4-49); HEMOGLOBIN 11.8 GM/dL (11.7-16.9); MCH 26.7 pg (25.7-33.7); MCHC 33.4 g/dl (32.0-35.9); MEAN CELL VOLUME 79.8 fl (80-96); MEAN PLT VOLUME 7.8 fl (7.5-11.1); PLATELET COUNT 221 10^3/uL (134-434); RBC 4.42 M/mm3 (4.00-5.60); RDW 15.9 % (11.9-15.9); WHITE BLOOD COUNT 6.8 K/mm3 (4.0-10.0)
[2020-10-16 08:35] LABS: BLOOD UREA NITROGEN 17.3 mg/dL (7-18); CALCIUM 8.8 mg/dL (8.5-10.1)
[2020-10-16 08:39] LABS: CREATININE 0.7 mg/dL (0.55-1.3)
[2020-10-16] MEDS: AMINO ACIDS/PROTEIN HYDROLYS 30 ML LIQUID.PKT PO SCH ×2 (08:41→17:40)
[2020-10-16] MEDS: VANCOMYCIN 1 GRAM (PRE-DOCKED) 1,000 MG/250 ML BAG IVPB SCH ×2 (08:41→21:32)
[2020-10-16] MEDS ORDERED: PT OWN MED DRAWER 7, Y5N ONE ×4 (09:48→22:48)
[2020-10-16] MEDS: MULTIVITAMINS (DAILY MVI) TABLET (FP) PO SCH (09:52)
[2020-10-16] MEDS: APIXABAN 5 MG TABLET PO SCH ×2 (09:52→21:31)
[2020-10-16] MEDS: LOSARTAN POTASSIUM 50 MG TABLET PO SCH (09:52)
[2020-10-16] MEDS: DOCUSATE SODIUM 100 MG CAPSULE (FP) PO SCH (09:52)
[2020-10-16] MEDS: SERTRALINE HCL 25 MG TABLET (FP) PO SCH (09:52)
[2020-10-16] MEDS: POLYETHYLENE GLYCOL (HEALTHYLAX) 3350 17 GM PACKET PO SCH (09:53)
[2020-10-16] MEDS: ASCORBIC ACID 250 MG TABLET (FP) PO SCH ×2 (09:53→22:52)
[2020-10-16] MEDS: ZINC OXIDE 20% TOPICAL OINTMENT 30 GM TUBE TP SCH ×2 (09:53→22:51)
[2020-10-16] MEDS: ATORVASTATIN CA 80 MG TABLET (FP) PO SCH (21:31)
[2020-10-16] MEDS: oxyCODONE HCL 5 MG TABLET PO PRN (21:34)
[2020-10-17] MEDS: INSULIN SLIDING SCALE (NOVOLOG) 1 VIAL SQ SCH ×3 (06:11→17:25)
[2020-10-17] MEDS: metFORMIN HCL 500 MG TABLET (FP) PO SCH ×2 (06:13→17:22)
[2020-10-17] MEDS ORDERED: PT OWN MED DRAWER 7, Y5N ONE ×3 (09:11→21:35)
[2020-10-17] MEDS: VANCOMYCIN 1 GRAM (PRE-DOCKED) 1,000 MG/250 ML BAG IVPB SCH ×2 (09:41→20:26)
[2020-10-17] MEDS: AMINO ACIDS/PROTEIN HYDROLYS 30 ML LIQUID.PKT PO SCH ×2 (09:41→17:22)
[2020-10-17] MEDS: DOCUSATE SODIUM 100 MG CAPSULE (FP) PO SCH (09:42)
[2020-10-17] MEDS: MULTIVITAMINS (DAILY MVI) TABLET (FP) PO SCH (09:42)
[2020-10-17] MEDS: LOSARTAN POTASSIUM 50 MG TABLET PO SCH (09:42)
[2020-10-17] MEDS: SERTRALINE HCL 25 MG TABLET (FP) PO SCH (09:42)
[2020-10-17] MEDS: APIXABAN 5 MG TABLET PO SCH ×2 (09:42→21:49)
[2020-10-17] MEDS: ASCORBIC ACID 250 MG TABLET (FP) PO SCH ×2 (09:42→21:49)
[2020-10-17] MEDS: ZINC OXIDE 20% TOPICAL OINTMENT 30 GM TUBE TP SCH ×2 (09:43→21:51)
[2020-10-17] MEDS: POLYETHYLENE GLYCOL (HEALTHYLAX) 3350 17 GM PACKET PO SCH (09:43)
[2020-10-17] MEDS: ATORVASTATIN CA 80 MG TABLET (FP) PO SCH (21:49)
[2020-10-17] MEDS: oxyCODONE HCL 5 MG TABLET PO PRN (21:49)
[2020-10-17] MEDS: diphenhydrAMINE HCL 25 MG CAPSULE (FP) PO PRN (23:32)
[2020-10-18 06:01] VITALS: PULSE 77
[2020-10-18] MEDS: INSULIN SLIDING SCALE (NOVOLOG) 1 VIAL SQ SCH ×2 (06:03→12:00)
[2020-10-18] MEDS: metFORMIN HCL 500 MG TABLET (FP) PO SCH (06:12)
[2020-10-18] MEDS: AMINO ACIDS/PROTEIN HYDROLYS 30 ML LIQUID.PKT PO SCH (08:39)
[2020-10-18] MEDS: VANCOMYCIN 1 GRAM (PRE-DOCKED) 1,000 MG/250 ML BAG IVPB SCH (08:39)
[2020-10-18] MEDS ORDERED: PT OWN MED DRAWER 7, Y5N ONE ×2 (09:45→11:45)
[2020-10-18] MEDS: MULTIVITAMINS (DAILY MVI) TABLET (FP) PO SCH (09:50)
[2020-10-18] MEDS: DOCUSATE SODIUM 100 MG CAPSULE (FP) PO SCH (09:51)
[2020-10-18] MEDS: SERTRALINE HCL 25 MG TABLET (FP) PO SCH (09:51)
[2020-10-18] MEDS: LOSARTAN POTASSIUM 50 MG TABLET PO SCH (09:51)
[2020-10-18] MEDS: APIXABAN 5 MG TABLET PO SCH (09:51)
[2020-10-18] MEDS: ZINC OXIDE 20% TOPICAL OINTMENT 30 GM TUBE TP SCH (09:51)
[2020-10-18] MEDS: POLYETHYLENE GLYCOL (HEALTHYLAX) 3350 17 GM PACKET PO SCH (09:54)
[2020-10-18] MEDS: ASCORBIC ACID 250 MG TABLET (FP) PO SCH (11:40)
[2020-10-18 15:46] VITALS: BP 128/76; TEMP 98.1
== END 2020-10-18 16:40 | disposition home or self-care (01) | DRG 264 ==
LOC: JASUSAT 05:17 → JASU-SURG 05:17 → J8W 19:11 → JASUSAT 19:12 → J8W 19:12
PROVIDERS: ADMIT Family Medicine; ATTEND Family Medicine
PROC: 0JBN0ZZ Excision of Right Lower Leg Subcutaneous Tissue and Fascia, Open Approach (ICD-10-PCS; 2020-10-04)
PROC: 0HRKX74 Replacement of Right Lower Leg Skin with Autologous Tissue Substitute, Partial Thickness, External Approach (ICD-10-PCS; 2020-10-04)
PROC: 0HRLXK3 Replacement of Left Lower Leg Skin with Nonautologous Tissue Substitute, Full Thickness, External Approach (ICD-10-PCS; 2020-10-04)
PROC: 0HBHXZZ Excision of Right Upper Leg Skin, External Approach (ICD-10-PCS; 2020-10-04)
PROC: 0JBP0ZZ Excision of Left Lower Leg Subcutaneous Tissue and Fascia, Open Approach (ICD-10-PCS; principal; 2020-10-04 14:00)
DX: I83.018 Varicose veins of right lower extremity with ulcer other part of lower leg (principal); L97.818 Non-pressure chronic ulcer of other part of right lower leg with other specified severity; L97.828 Non-pressure chronic ulcer of other part of left lower leg with other specified severity; I50.32 Chronic diastolic (congestive) heart failure; I83.028 Varicose veins of left lower extremity with ulcer other part of lower leg; E11.51 Type 2 diabetes mellitus with diabetic peripheral angiopathy without gangrene; I25.10 Atherosclerotic heart disease of native coronary artery without angina pectoris; E78.5 Hyperlipidemia, unspecified; E66.9 Obesity, unspecified; Z68.33 Body mass index [BMI] 33.0-33.9, adult; I48.91 Unspecified atrial fibrillation; K21.9 Gastro-esophageal reflux disease without esophagitis; I45.10 Unspecified right bundle-branch block; I11.0 Hypertensive heart disease with heart failure; Z95.5 Presence of coronary angioplasty implant and graft
CPT/HCPCS: 36415; 80048; 80053; 80061; 81003; 82550; 82570; 82962; 83036; 83721; 83735; 84100; 84156; 84443; 84484; 85025; 85027; 85379; 85610; 85730; 87070; 87186; 87205; 88304-TC; 93005; 93010; 93225; 93226; 93970-TC; 94010; 94760; 97116-GP; 97161-GP; C9803; G0480; J0131; U0003; U0005

== ENCOUNTER 2020-12-20 04:33 | Day surgery (SDC) | payer OTHER, BC ==
[2020-12-19 14:33] VITALS: BMI 34.0
[2020-12-20] MEDS ORDERED: MIDAZOLAM HCL 2 MG/2 ML SINGLE DOSE VIAL ONE (11:56)
[2020-12-20] MEDS ORDERED: PROPOFOL 20 ML ONE (11:56)
[2020-12-20] MEDS ORDERED: MINERAL OIL 25 ML OIL TP ONE (12:06)
[2020-12-20] MEDS ORDERED: ceFAZolin SODIUM 1 GM VIAL IVPB ONE (12:25)
[2020-12-20] MEDS ORDERED: ceFAZolin SODIUM 1 GM VIAL ONE (12:26)
[2020-12-20] MEDS ORDERED: DEXAMETHASONE SOD PHOSPHATE 4 MG/1 ML VIAL ONE (12:32)
[2020-12-20] MEDS ORDERED: ONDANSETRON 4 MG/2 ML VIAL ONE (12:32)
[2020-12-20] MEDS ORDERED: oxyCODONE HCL 5 MG TABLET PO PRN (13:43)
[2020-12-20] MEDS ORDERED: ONDANSETRON 4 MG/2 ML VIAL IVPUSH PRN (13:43)
[2020-12-20] MEDS: LACTATED RINGERS SOLUTION 1,000 ML IV SCH (16:28)
[2020-12-20] MEDS ORDERED: ATORVASTATIN CA 80 MG TABLET (FP) PO SCH (22:00)
[2020-12-20] MEDS: oxyCODONE HCL 10 MG SUSTAINED ACTING TABLET PO SCH (22:44)
[2020-12-21] MEDS: LACTATED RINGERS SOLUTION 1,000 ML IV SCH (00:15)
[2020-12-21] MEDS ORDERED: metFORMIN HCL 500 MG TABLET (FP) PO SCH (07:00)
[2020-12-21] MEDS ORDERED: PT OWN MED DRAWER 7, Y5N ONE (09:45)
[2020-12-21] MEDS: oxyCODONE HCL 10 MG SUSTAINED ACTING TABLET PO SCH (09:50)
[2020-12-21] MEDS ORDERED: LOSARTAN 50MG/HCTZ 12.5MG 1 TAB PO SCH (10:00)
[2020-12-21 14:31] VITALS: BP 162/86; PULSE 84; TEMP 98.5
== END 2020-12-21 15:41 | disposition home or self-care (01) ==
LOC: JASUSAT 04:33 → J8W 16:16 → JASUSAT 12-21 15:41
PROVIDERS: ATTEND Plastic Surgery
PROC: 0HBLXZZ Excision of Left Lower Leg Skin, External Approach (ICD-10-PCS; 2020-12-20)
PROC: 0JBP0ZZ Excision of Left Lower Leg Subcutaneous Tissue and Fascia, Open Approach (ICD-10-PCS; 2020-12-20)
PROC: 0HRLX74 Replacement of Left Lower Leg Skin with Autologous Tissue Substitute, Partial Thickness, External Approach (ICD-10-PCS; principal; 2020-12-20 11:30)
DX: S81.802A Unspecified open wound, left lower leg, initial encounter (principal); L76.82 Other postprocedural complications of skin and subcutaneous tissue; Z98.890 Other specified postprocedural states; Y83.2 Surgical operation with anastomosis, bypass or graft as the cause of abnormal reaction of the patient, or of later complication, without mention of misadventure at the time of the procedure; Y82.8 Other medical devices associated with adverse incidents; Y92.9 Unspecified place or not applicable
CPT/HCPCS: 82962; 94760

== ENCOUNTER 2021-06-11 12:21 | Emergency (ER) | payer OTHER, BC ==
[2021-06-11 12:53] VITALS: BP 151/82; PULSE 94; TEMP 97.8; BMI 35.4
[2021-06-11] MEDS ORDERED: DIPHTH,PERTUSS(ACELL),TET 0.5 ML DISP.SYRIN IM ONE ×2 (13:41→14:13)
[2021-06-11] MEDS ORDERED: ACETAMINOPHEN 325 MG TABLET (FP) PO ONE (13:57)
[2021-06-11] MEDS ORDERED: ACETAMINOPHEN 325 MG TABLET (FP) ONE (14:13)
== END 2021-06-11 16:24 | disposition home or self-care (01) ==
LOC: JER 12:21
PROC: 3E0234Z Introduction of Serum, Toxoid and Vaccine into Muscle, Percutaneous Approach (ICD-10-PCS; principal; 2021-06-11)
DX: S00.03XA Contusion of scalp, initial encounter (principal); W22.8XXA Striking against or struck by other objects, initial encounter
CPT/HCPCS: 70450-TC; 71046-TC-FY; 72125-TC; 90471; 90715; 99284-25

== ENCOUNTER 2022-03-05 04:13 | Day surgery (SDC) | payer OTHER, BC ==
[2022-03-04 08:55] VITALS: BMI 36.9
[2022-03-05] MEDS ORDERED: MIDAZOLAM HCL 2 MG/2 ML SINGLE DOSE VIAL ONE (14:41)
[2022-03-05] MEDS ORDERED: FENTANYL CITRATE/PF 50 MCG/ML VIAL ONE ×2 (14:41→15:02)
[2022-03-05] MEDS ORDERED: KETAMINE HCL 500 MG/10 ML VIAL ONE (14:41)
[2022-03-05] MEDS ORDERED: SUCCINYLCHOLINE CHLORIDE 200 MG/10 ML SYRINGE ONE (14:45)
[2022-03-05] MEDS ORDERED: ACETAMINOPHEN INJECTION 100 ML IVPB ONE (15:05)
[2022-03-05] MEDS ORDERED: BUPIVACAINE HCL/PF 0.25% (2.5MG/ML) 10 ML VIAL ONE (15:11)
[2022-03-05] MEDS ORDERED: ONDANSETRON 4 MG/2 ML VIAL IVPUSH PRN (15:23)
[2022-03-05] MEDS ORDERED: ceFAZolin SODIUM 1 GM VIAL IVPB ONE (15:40)
[2022-03-05] MEDS ORDERED: BUPIVACAINE HCL/PF 0.25% (2.5MG/ML) 10 ML VIAL IJ ONE ×2 (16:05)
[2022-03-05] MEDS ORDERED: LIDO 2%/EPI 1:200000 PRESRVFRE (20 ML SDVIAL) INF ONE ×2 (16:05)
[2022-03-05 18:07] VITALS: TEMP 97.2
[2022-03-05 18:41] VITALS: RESP 20
[2022-03-05 18:46] VITALS: BP 164/92; PULSE 67
== END 2022-03-05 18:55 | disposition home or self-care (01) ==
LOC: JASUSAT 04:13
PROVIDERS: ATTEND Plastic Surgery
PROC: 0HRLX74 Replacement of Left Lower Leg Skin with Autologous Tissue Substitute, Partial Thickness, External Approach (ICD-10-PCS; 2022-03-05)
PROC: 0HRKX74 Replacement of Right Lower Leg Skin with Autologous Tissue Substitute, Partial Thickness, External Approach (ICD-10-PCS; 2022-03-05)
PROC: 0HBKXZZ Excision of Right Lower Leg Skin, External Approach (ICD-10-PCS; 2022-03-05)
PROC: 0JBP0ZZ Excision of Left Lower Leg Subcutaneous Tissue and Fascia, Open Approach (ICD-10-PCS; principal; 2022-03-05 14:00)
PROC: 0JBN0ZZ Excision of Right Lower Leg Subcutaneous Tissue and Fascia, Open Approach (ICD-10-PCS; 2022-03-05 14:00)
DX: L97.919 Non-pressure chronic ulcer of unspecified part of right lower leg with unspecified severity (principal); L97.929 Non-pressure chronic ulcer of unspecified part of left lower leg with unspecified severity
CPT/HCPCS: 82962; 88304-TC; 88342-TC; 94760

== ENCOUNTER 2023-09-11 10:30 | Inpatient (IN) | payer OTHER, BC ==
[2023-09-11 12:11] LABS: BASO % 0.5 % (0-2.0); EOS % 1.1 % (0-4.5); HEMATOCRIT 50.4 % (35.4-49); HEMOGLOBIN 16.7 GM/dL (11.7-16.9); LYMPH % 29.8 % (8-40); MCH 28.7 pg (25.7-33.7); MCHC 33.1 g/dl (32.0-35.9); MEAN CELL VOLUME 86.6 fl (80-96); MONO % 8.4 % (3.8-10.2); NEUT % 60.2 % (42.8-82.8); PLATELET COUNT 220 10^3/uL (134-434); RBC 5.81 M/mm3 (4.00-5.60); RDW 14.9 % (11.9-15.9); WHITE BLOOD COUNT 9.6 K/mm3 (4.0-10.0)
[2023-09-11] MEDS ORDERED: ACETAMINOPHEN INJECTION 100 ML IVPB ONE (12:14)
[2023-09-11 12:20] LABS: INR 1.13 (0.83-1.09); PROTHROMBIN TIME (PATIENT) 12.7 SEC (9.7-13.0)
[2023-09-11] MEDS: ACETAMINOPHEN 1000 MG/100 ML BAG IVPB ONE (12:21)
[2023-09-11 12:23] LABS: ACTIVATED PTT 33.4 SECONDS (25.2-36.5)
[2023-09-11 12:28] LABS: POTASSIUM 4.2 mmol/L (3.5-5.1)
[2023-09-11 12:31] LABS: BLOOD UREA NITROGEN 19.8 mg/dL (7-18); CALCIUM 9.6 mg/dL (8.5-10.1)
[2023-09-11 12:32] LABS: ALBUMIN 4.1 g/dl (3.4-5.0)
[2023-09-11] MEDS ORDERED: PIPERACILLIN/TAZOB 4.5 GM 4.5 GM/100 ML BAG IVPB ONE (12:32)
[2023-09-11 12:35] LABS: CREATININE 0.9 mg/dL (0.55-1.3)
[2023-09-11 12:38] LABS: BILIRUBIN,TOTAL 1.3 mg/dL (0.2-1)
[2023-09-11] MEDS: PIPERACILLIN/TAZOB 4.5 GM 4.5 GM in DEXTROSE 5%-WATER - 100 ML IVPB ONE (12:46)
[2023-09-11] MEDS ORDERED: VANCOMYCIN 1 GRAM (PRE-DOCKED) 1,000 MG/250 ML BAG IVPB ONE (13:12)
[2023-09-11] MEDS ORDERED: FUROSEMIDE 40 MG TABLET (FP) ONE (13:13)
[2023-09-11] MEDS: FUROSEMIDE 40 MG TABLET (FP) PO SCH (13:23)
[2023-09-11] MEDS: VANCOMYCIN 1,000 MG in DEXTROSE 5%-WATER - 250 ML IVPB ONE (13:23)
[2023-09-11 15:10] VITALS: RESP 18; BMI 35.7
[2023-09-11] MEDS: ACETAMINOPHEN 325 MG TABLET (FP) PO PRN (16:13)
[2023-09-11] MEDS: INSULIN ASPART SLIDING SCALE (NOVOLOG) 1 VIAL SQ SCH (16:39)
[2023-09-11] MEDS: COLLAGENASE CLOSTRIDIUM HIST. 30 GRAMS TUBE TP SCH (17:54)
[2023-09-11] MEDS: PIPERACILLIN/TAZOB 3.375 GM 3.375 GM in DEXTROSE 5%-WATER - 50 ML IVPB SCH (17:54)
[2023-09-11] MEDS: DOXYCYCLINE HYCLATE 100 MG CAPSULE PO SCH (17:54)
[2023-09-11] MEDS: ATORVASTATIN CA 80 MG TABLET (FP) PO SCH (21:47)
[2023-09-12 08:59] LABS: BASO % 0.3 % (0-2.0); EOS % 1.1 % (0-4.5); MCH 28.6 pg (25.7-33.7); MCHC 33.4 g/dl (32.0-35.9); MEAN CELL VOLUME 85.8 fl (80-96); MEAN PLT VOLUME 8.2 fl (7.5-11.1); NEUT % 59.6 % (42.8-82.8); PLATELET COUNT 193 10^3/uL (134-434); RBC 5.94 M/mm3 (4.00-5.60); RDW 15.1 % (11.9-15.9); WHITE BLOOD COUNT 9.1 K/mm3 (4.0-10.0)
[2023-09-12 09:16] LABS: POTASSIUM 4.2 mmol/L (3.5-5.1)
[2023-09-12 09:24] LABS: ALBUMIN 3.8 g/dl (3.4-5.0); BLOOD UREA NITROGEN 21.7 mg/dL (7-18)
[2023-09-12 09:25] LABS: BILIRUBIN,TOTAL 1.4 mg/dL (0.2-1); TOT PROT 7.7 g/dl (6.4-8.2)
[2023-09-12 09:27] LABS: CREATININE 0.9 mg/dL (0.55-1.3)
[2023-09-12] MEDS ORDERED: SACUBITRIL/VALSARTAN 49 MG-51 MG TABLET PO SCH ×2 (10:00)
[2023-09-12] MEDS: ASPIRIN COATED 81 MG TABLET.EC PO SCH (10:04)
[2023-09-12] MEDS: EMPAGLIFLOZIN (JARDIANCE) 25 MG TABLET PO SCH (10:05)
[2023-09-12 12:32] VITALS: BP 157/89; PULSE 79; TEMP 97.7
== END 2023-09-12 13:06 | disposition home or self-care (01) | DRG 639 ==
LOC: JER 10:30 → JERBED 11:04 → J6S 13:56
PROVIDERS: ADMIT Internal Medicine; ATTEND Internal Medicine
DX: E11.621 Type 2 diabetes mellitus with foot ulcer (principal); L03.031 Cellulitis of right toe; I25.10 Atherosclerotic heart disease of native coronary artery without angina pectoris; I11.0 Hypertensive heart disease with heart failure; I50.9 Heart failure, unspecified; Z95.5 Presence of coronary angioplasty implant and graft
CPT/HCPCS: 36415; 73630-TC-RT-FY; 73721-RT-TC; 80053; 82962; 83036; 84443; 85025; 85610; 85651; 85730; 86140; 86850; 86900; 86901; 87040; 87070; 87186; 87205; 99285-25; G0463-25; J0131

== ENCOUNTER 2023-10-28 09:48 | Inpatient (IN) | payer OTHER, BC ==
[2023-10-28 11:17] LABS: BASO % 0.4 % (0-2.0); EOS % 1.4 % (0-4.5); HEMATOCRIT 44.4 % (35.4-49); HEMOGLOBIN 14.9 GM/dL (11.7-16.9); LYMPH % 32.7 % (8-40); MCH 28.4 pg (25.7-33.7); MCHC 33.6 g/dl (32.0-35.9); MEAN CELL VOLUME 84.8 fl (80-96); MEAN PLT VOLUME 7.6 fl (7.5-11.1); NEUT % 57.5 % (42.8-82.8); PLATELET COUNT 166 10^3/uL (134-434); RBC 5.24 M/mm3 (4.00-5.60); WHITE BLOOD COUNT 6.5 K/mm3 (4.0-10.0)
[2023-10-28 11:30] LABS: INR 1.22 (0.83-1.09); PROTHROMBIN TIME (PATIENT) 13.9 SEC (9.7-13.0)
[2023-10-28 11:32] LABS: ACTIVATED PTT 33.8 SECONDS (25.2-36.5)
[2023-10-28 11:57] LABS: ERYTHROCYTE SEDIMENTATION RATE 18 mm/hr (0-20)
[2023-10-28 12:20] LABS: POTASSIUM 5.3 mmol/L (3.5-5.1)
[2023-10-28 12:23] LABS: ALBUMIN 3.6 g/dl (3.4-5.0); BLOOD UREA NITROGEN 21.6 mg/dL (7-18); CALCIUM 8.8 mg/dL (8.5-10.1)
[2023-10-28 12:28] LABS: BILIRUBIN,TOTAL 0.8 mg/dL (0.2-1); TOT PROT 7.3 g/dl (6.4-8.2)
[2023-10-28] MEDS ORDERED: ACETAMINOPHEN INJECTION 100 ML IVPB ONE (12:50)
[2023-10-28] MEDS: ACETAMINOPHEN 1000 MG/100 ML BAG IVPB ONE ×2 (12:55→22:29)
[2023-10-28] MEDS ORDERED: CEFTRIAXONE 1 GM in DEXTROSE 5%-WATER - 50 ML IVPB SCH (14:15)
[2023-10-28 15:42] VITALS: BMI 40.2
[2023-10-28] MEDS: AMPICILLIN NA/SULBACTAM NA 3 GM in SODIUM CHLORIDE 100 ML IVPB SCH (16:54)
[2023-10-29] MEDS: metFORMIN HCL 500 MG TABLET (FP) PO SCH (06:29)
[2023-10-29] MEDS: ACETAMINOPHEN 325 MG TABLET (FP) PO PRN (06:30)
[2023-10-29] MEDS: hydrALAZINE HCL 25 MG TABLET (FP) PO ONE ×2 (09:17→19:00)
[2023-10-29] MEDS: EMPAGLIFLOZIN (JARDIANCE) 25 MG TABLET PO SCH (10:06)
[2023-10-29] MEDS ORDERED: INSULIN ASPART SLIDING SCALE (NOVOLOG) 1 VIAL SQ ONE (11:22)
[2023-10-29] MEDS: INSULIN ASPART SLIDING SCALE (NOVOLOG) 1 VIAL SQ SCH (11:26)
[2023-10-29] MEDS: SACUBITRIL/VALSARTAN 49 MG-51 MG TABLET PO SCH (15:01)
[2023-10-29] MEDS: HEPARIN NA (PORCINE) 5,000 UNITS/ML 1ML VIAL SQ SCH (15:01)
[2023-10-29] MEDS: ASPIRIN COATED 81 MG TABLET.EC PO SCH (15:01)
[2023-10-29] MEDS: ATORVASTATIN CA 80 MG TABLET (FP) PO SCH (21:22)
[2023-10-30] MEDS: oxyCODONE HCL 5 MG TABLET PO ONE (01:05)
[2023-10-30] MEDS: hydrALAZINE HCL 25 MG TABLET (FP) PO ONE (09:47)
[2023-10-30] MEDS: morphine SULFATE 4 MG/ML VIAL IVPUSH PRN ×2 (10:32→23:13)
[2023-10-30] MEDS: DEXTROSE 5%-NORMAL SALINE 1,000 ML IV SCH ×2 (12:21→23:15)
[2023-10-30] MEDS ORDERED: HEPARIN NA (PORCINE) 5,000 UNITS/ML 1ML VIAL ONE ×2 (14:14→18:33)
[2023-10-30] MEDS ORDERED: LIDOCAINE HCL 1%, 10 MG/ML (20ML VIAL) ONE (14:14)
[2023-10-30] MEDS: hydrALAZINE HCL 25 MG TABLET (FP) PO SCH ×2 (15:18→23:15)
[2023-10-30] MEDS ORDERED: ONDANSETRON 4 MG/2 ML VIAL IVPUSH PRN ×2 (16:08→19:21)
[2023-10-30] MEDS ORDERED: PROMETHAZINE HCL 25 MG/1 ML VIAL IVPB PRN ×2 (16:08→19:21)
[2023-10-30] MEDS ORDERED: LACTATED RINGERS SOLUTION 1,000 ML IV SCH ×2 (16:15→19:21)
[2023-10-30] MEDS ORDERED: SODIUM CHLORIDE 0.9% P/F 10 ML VIAL IJ ONE (16:27)
[2023-10-30] MEDS ORDERED: ceFAZolin SODIUM 1 GM VIAL ONE (16:27)
[2023-10-30] MEDS ORDERED: MIDAZOLAM HCL 2 MG/2 ML SINGLE DOSE VIAL ONE ×2 (17:05→17:19)
[2023-10-30] MEDS: ceFAZolin SODIUM 1 GM VIAL IVPB ONE (17:15)
[2023-10-30] MEDS ORDERED: PROPOFOL 20 ML ONE ×3 (17:29→18:25)
[2023-10-30] MEDS: LIDOCAINE HCL 1%, 10 MG/ML (20ML VIAL) INF ONE (17:56)
[2023-10-30] MEDS: RIVAROXABAN 2.5 MG TABLET PO SCH (21:00)
[2023-10-30] MEDS ORDERED: HEPARIN NA (PORCINE) 5,000 UNITS/ML 1ML VIAL SQ SCH (22:00)
[2023-10-30] MEDS: SACUBITRIL/VALSARTAN 49 MG-51 MG TABLET PO SCH (23:14)
[2023-10-30] MEDS: INSULIN ASPART SLIDING SCALE (NOVOLOG) 1 VIAL SQ SCH (23:14)
[2023-10-30] MEDS: ATORVASTATIN CA 80 MG TABLET (FP) PO SCH (23:14)
[2023-10-31] MEDS: ACETAMINOPHEN 325 MG TABLET (FP) PO PRN (00:22)
[2023-10-31] MEDS: AMPICILLIN NA/SULBACTAM NA 3 GM in SODIUM CHLORIDE 100 ML IVPB SCH (01:03)
[2023-10-31] MEDS: metFORMIN HCL 500 MG TABLET (FP) PO SCH (06:37)
[2023-10-31 09:14] LABS: N-TERMINAL BNP 2713.9 pg/ml (5-125)
[2023-10-31] MEDS: ASPIRIN COATED 81 MG TABLET.EC PO SCH (09:25)
[2023-10-31] MEDS: EMPAGLIFLOZIN (JARDIANCE) 25 MG TABLET PO SCH (09:25)
[2023-10-31] MEDS: AMOX TR/POT CLAV 500MG/125MG TABLETS (FP) PO SCH (09:25)
[2023-10-31 10:21] VITALS: BP 116/75; PULSE 73; RESP 20; TEMP 98.2
[2023-10-31 10:29] LABS: HEMOGLOBIN 16.2 GM/dL (11.7-16.9); MCH 28.2 pg (25.7-33.7); MCHC 33.1 g/dl (32.0-35.9); MEAN CELL VOLUME 85.4 fl (80-96); MEAN PLT VOLUME 8.1 fl (7.5-11.1); PLATELET COUNT 201 10^3/uL (134-434); RBC 5.74 M/mm3 (4.00-5.60); RDW 14.6 % (11.9-15.9); WHITE BLOOD COUNT 10.7 K/mm3 (4.0-10.0)
[2023-10-31 10:48] LABS: POTASSIUM 4.4 mmol/L (3.5-5.1)
[2023-10-31 10:56] LABS: ALBUMIN 3.4 g/dl (3.4-5.0); BLOOD UREA NITROGEN 25.6 mg/dL (7-18); CALCIUM 9.2 mg/dL (8.5-10.1); MAGNESIUM 1.9 mg/dL (1.8-2.4)
[2023-10-31 10:59] LABS: CREATININE 1.1 mg/dL (0.55-1.3)
[2023-10-31 11:01] LABS: TOT PROT 6.8 g/dl (6.4-8.2)
== END 2023-10-31 12:26 | disposition home or self-care (01) | DRG 253 ==
LOC: JER 09:48 → JERBED 12:47 → J8W 15:01 → OBSVTOIN 10-29 11:22
PROVIDERS: ADMIT Family Medicine; ATTEND Family Medicine
PROC: B40DYZZ Plain Radiography of Aorta and Bilateral Lower Extremity Arteries using Other Contrast (ICD-10-PCS; 2023-10-30)
PROC: 3E05317 Introduction of Other Thrombolytic into Peripheral Artery, Percutaneous Approach (ICD-10-PCS; 2023-10-30)
PROC: 047P3ZZ Dilation of Right Anterior Tibial Artery, Percutaneous Approach (ICD-10-PCS; principal; 2023-10-30 17:30)
DX: E11.51 Type 2 diabetes mellitus with diabetic peripheral angiopathy without gangrene (principal); L97.919 Non-pressure chronic ulcer of unspecified part of right lower leg with unspecified severity; Z68.41 Body mass index [BMI] 40.0-44.9, adult; L97.519 Non-pressure chronic ulcer of other part of right foot with unspecified severity; E66.01 Morbid (severe) obesity due to excess calories; E11.40 Type 2 diabetes mellitus with diabetic neuropathy, unspecified; I87.2 Venous insufficiency (chronic) (peripheral); I25.10 Atherosclerotic heart disease of native coronary artery without angina pectoris; Z95.5 Presence of coronary angioplasty implant and graft
CPT/HCPCS: 11042; 36415; 73630-TC-RT-FY; 80053; 80061; 82962; 83036; 83735; 83880; 85025; 85027; 85610; 85651; 85730; 86140; 86850; 86900; 86901; 93005; 93010; 93306-TC; 94760; 99285-25; C1760; C1897; G0378; J0131; J1644

== ENCOUNTER 2023-11-21 04:09 | Inpatient (IN) | payer OTHER, BC ==
[2023-11-19 13:05] VITALS: BMI 34.2
[2023-11-21] MEDS ORDERED: LIDOCAINE 1%/EPI 1:100000 (20 ML MULTI DOSE VIAL) ONE (09:32)
[2023-11-21] MEDS ORDERED: MIDAZOLAM HCL 2 MG/2 ML SINGLE DOSE VIAL ONE (10:13)
[2023-11-21] MEDS: ceFAZolin SODIUM 1 GM VIAL IVPB ONE (10:25)
[2023-11-21] MEDS: LIDOCAINE 2%/EPINEPHRINE 1:100000 (50 ML MD VIAL) INF ONE (10:45)
[2023-11-21] MEDS ORDERED: PROPOFOL 20 ML ONE (10:54)
[2023-11-21] MEDS ORDERED: SEVOFLURANE 250 ML BTL ONE (11:59)
[2023-11-21] MEDS ORDERED: HYDROmorphone HCL CARPU-JECT 2 MG/1 ML DISP.SYRIN ONE (14:04)
[2023-11-21] MEDS ORDERED: ACETAMINOPHEN INJECTION 100 ML ONE (14:04)
[2023-11-21] MEDS: HYDROmorphone HCL CARPU-JECT 2 MG/1 ML DISP.SYRIN IVPUSH PRN (14:10)
[2023-11-21] MEDS: ACETAMINOPHEN 1000 MG/100 ML BAG IVPB ONE (14:13)
[2023-11-21] MEDS ORDERED: ceFAZolin SODIUM 1 GM VIAL ONE (14:30)
[2023-11-21] MEDS: CEFAZOLIN 1 GM in DEXTROSE 5%-WATER - 50 ML IVPB SCH (14:32)
[2023-11-21] MEDS: LACTATED RINGERS SOLUTION 1,000 ML IV SCH (15:12)
[2023-11-21] MEDS: oxyCODONE HCL 5 MG TABLET PO PRN (15:44)
[2023-11-21] MEDS: metFORMIN HCL 500 MG TABLET (FP) PO SCH (17:42)
[2023-11-21] MEDS: ATORVASTATIN CA 80 MG TABLET (FP) PO SCH (21:39)
[2023-11-21] MEDS: hydrALAZINE HCL 25 MG TABLET (FP) PO SCH (21:39)
[2023-11-22] MEDS: EMPAGLIFLOZIN (JARDIANCE) 25 MG TABLET PO SCH (07:14)
[2023-11-22] MEDS: DOCUSATE SODIUM 100 MG CAPSULE (FP) PO SCH (10:18)
[2023-11-23] MEDS: ACETAMINOPHEN 325 MG TABLET (FP) PO PRN (15:47)
[2023-11-23] MEDS: POLYETHYLENE GLYCOL (HEALTHYLAX) 3350 17 GM PACKET PO ONE (20:12)
[2023-11-25 06:16] VITALS: RESP 18
[2023-11-25] MEDS: BACITRACIN ZINC 15 GM TUBE TOPICAL OINTMENT TP ONE (10:08)
[2023-11-25 10:50] VITALS: PULSE 96
[2023-11-25 14:56] VITALS: BP 137/90; TEMP 98.2
== END 2023-11-25 16:07 | disposition home or self-care (01) | DRG 264 ==
LOC: JASU-SURG 04:09 → JASUSAT 04:09 → J8W 15:16
PROVIDERS: ADMIT Plastic Surgery; ATTEND Plastic Surgery
PROC: 0HRMXK3 Replacement of Right Foot Skin with Nonautologous Tissue Substitute, Full Thickness, External Approach (ICD-10-PCS; 2023-11-21)
PROC: 0HRMXK3 Replacement of Right Foot Skin with Nonautologous Tissue Substitute, Full Thickness, External Approach (ICD-10-PCS; 2023-11-21)
PROC: 2W2SX4Z Dressing of Right Foot using Bandage (ICD-10-PCS; 2023-11-21)
PROC: 2W2LX4Z Dressing of Right Lower Extremity using Bandage (ICD-10-PCS; 2023-11-21)
PROC: 0JBN0ZZ Excision of Right Lower Leg Subcutaneous Tissue and Fascia, Open Approach (ICD-10-PCS; principal; 2023-11-21 10:00)
PROC: 0JBQ0ZZ Excision of Right Foot Subcutaneous Tissue and Fascia, Open Approach (ICD-10-PCS; 2023-11-21 10:00)
PROC: 0HRKX74 Replacement of Right Lower Leg Skin with Autologous Tissue Substitute, Partial Thickness, External Approach (ICD-10-PCS; 2023-11-21 10:00)
DX: E11.52 Type 2 diabetes mellitus with diabetic peripheral angiopathy with gangrene (principal); I96 Gangrene, not elsewhere classified; L97.919 Non-pressure chronic ulcer of unspecified part of right lower leg with unspecified severity; L97.929 Non-pressure chronic ulcer of unspecified part of left lower leg with unspecified severity; E11.621 Type 2 diabetes mellitus with foot ulcer; I25.10 Atherosclerotic heart disease of native coronary artery without angina pectoris; I10 Essential (primary) hypertension
CPT/HCPCS: 11043; 11046; 82962; 87070; 87186; 87205; 88304-TC; 94760; J0131; Q4121

== ENCOUNTER 2024-01-07 08:15 | Inpatient (IN) | payer OTHER, BC ==
[2024-01-07 08:51] VITALS: BMI 34.0
[2024-01-07 09:49] LABS: BASO % 0.8 % (0-2.0); EOS % 3.9 % (0-4.5); HEMOGLOBIN 13.6 GM/dL (11.7-16.9); LYMPH % 27.3 % (8-40); MCH 28.6 pg (25.7-33.7); MCHC 33.1 g/dl (32.0-35.9); MEAN CELL VOLUME 86.4 fl (80-96); MEAN PLT VOLUME 7.7 fl (7.5-11.1); MONO % 7.4 % (3.8-10.2); NEUT % 60.6 % (42.8-82.8); PLATELET COUNT 172 10^3/uL (134-434); RBC 4.75 M/mm3 (4.00-5.60); RDW 16.4 % (11.9-15.9); WHITE BLOOD COUNT 5.7 K/mm3 (4.0-10.0)
[2024-01-07 09:56] LABS: INR 1.22 (0.83-1.09); PROTHROMBIN TIME (PATIENT) 13.7 SEC (9.7-13.0)
[2024-01-07 10:30] LABS: POTASSIUM 4.2 mmol/L (3.5-5.1)
[2024-01-07 10:32] LABS: CALCIUM 8.4 mg/dL (8.5-10.1)
[2024-01-07 10:33] LABS: ALBUMIN 3.7 g/dl (3.4-5.0); BLOOD UREA NITROGEN 16.2 mg/dL (7-18); ERYTHROCYTE SEDIMENTATION RATE 16 mm/hr (0-20)
[2024-01-07 10:36] LABS: CREATININE 0.9 mg/dL (0.55-1.3)
[2024-01-07 10:38] LABS: BILIRUBIN,TOTAL 0.6 mg/dL (0.2-1); TOT PROT 7.3 g/dl (6.4-8.2)
[2024-01-07] MEDS: oxyCODONE HCL 5 MG TABLET PO ONE (11:26)
[2024-01-07] MEDS: VANCOMYCIN PREMIX 1.75 GM 1,750 MG/350 ML PIGGYBACK IVPB ONE (11:47)
[2024-01-07] MEDS ORDERED: hydrALAZINE HCL 25 MG TABLET (FP) ONE ×2 (12:25→17:35)
[2024-01-07] MEDS: hydrALAZINE HCL 25 MG TABLET (FP) PO SCH (12:32)
[2024-01-07] MEDS: INSULIN ASPART SLIDING SCALE (NOVOLOG) 1 VIAL SQ SCH (16:57)
[2024-01-07] MEDS: hydrALAZINE HCL 25 MG TABLET (FP) PO ONE (17:35)
[2024-01-07] MEDS: oxyCODONE HCL 5 MG TABLET PO PRN (21:10)
[2024-01-07] MEDS: SACUBITRIL/VALSARTAN 49 MG-51 MG TABLET PO SCH (21:11)
[2024-01-07] MEDS: ATORVASTATIN CA 80 MG TABLET (FP) PO SCH (21:11)
[2024-01-07] MEDS: RIVAROXABAN 2.5 MG TABLET PO SCH (21:11)
[2024-01-07] MEDS ORDERED: metoPROLOL SUCCINATE 25 MG TAB.SR.24H (FP) PO SCH (22:00)
[2024-01-08] MEDS: VANCOMYCIN PREMIX 1.5 GM 1,500 MG/300 ML BAG IVPB SCH (01:01)
[2024-01-08] MEDS: hydrALAZINE HCL 25 MG TABLET (FP) PO SCH (05:33)
[2024-01-08] MEDS: EMPAGLIFLOZIN (JARDIANCE) 25 MG TABLET PO SCH (07:44)
[2024-01-08] MEDS: FUROSEMIDE 40 MG TABLET (FP) PO SCH (09:19)
[2024-01-08] MEDS ORDERED: ENOXAPARIN NA (PORCINE) 40 MG/0.4 ML DISP.SYRIN SQ SCH (10:00)
[2024-01-08 10:25] LABS: BASO % 0.6 % (0-2.0); EOS % 2.7 % (0-4.5); HEMATOCRIT 44.1 % (35.4-49); HEMOGLOBIN 14.8 GM/dL (11.7-16.9); LYMPH % 28.4 % (8-40); MCH 28.8 pg (25.7-33.7); MCHC 33.6 g/dl (32.0-35.9); MEAN CELL VOLUME 85.7 fl (80-96); NEUT % 60.3 % (42.8-82.8); PLATELET COUNT 206 10^3/uL (134-434); RBC 5.14 M/mm3 (4.00-5.60); WHITE BLOOD COUNT 7.5 K/mm3 (4.0-10.0)
[2024-01-08 10:52] LABS: POTASSIUM 4.4 mmol/L (3.5-5.1)
[2024-01-08 11:02] LABS: CALCIUM 9.1 mg/dL (8.5-10.1); MAGNESIUM 1.7 mg/dL (1.8-2.4)
[2024-01-08 11:05] LABS: ALBUMIN 3.9 g/dl (3.4-5.0); CREATININE 0.8 mg/dL (0.55-1.3); PHOSPHOROUS 3.3 mg/dL (2.5-4.9)
[2024-01-08 11:07] LABS: BILIRUBIN,TOTAL 1.3 mg/dL (0.2-1); TOT PROT 7.6 g/dl (6.4-8.2)
[2024-01-08 11:16] LABS: BLOOD UREA NITROGEN 17.1 mg/dL (7-18)
[2024-01-08] MEDS: CEFTRIAXONE 2 GM in DEXTROSE 5%-WATER - 50 ML IVPB SCH (15:04)
[2024-01-08] MEDS: VANCOMYCIN HCL 1,500 MG in DEXTROSE 5%-WATER - 250 ML IVPB SCH (15:13)
[2024-01-08] MEDS: PIPERACILLIN/TAZOB 4.5 GM 4.5 GM in DEXTROSE 5%-WATER 100 ML IVPB SCH (20:04)
[2024-01-08] MEDS: MAGNESIUM OXIDE 400 MG TABLET (FP) PO SCH (21:36)
[2024-01-10] MEDS: COLLAGENASE CLOSTRIDIUM HIST. 30 GRAMS TUBE TP SCH (13:40)
[2024-01-10] MEDS: ACETAMINOPHEN 325 MG TABLET (FP) PO PRN (22:03)
[2024-01-12] MEDS ORDERED: PNEUMOC 20-VAL CONJ-DIP CRM/PF 0.5 ML SYRINGE IM ONE (17:42)
[2024-01-13] MEDS ORDERED: LIDOCAINE HCL 1%, 10 MG/ML (20ML VIAL) ONE (13:17)
[2024-01-13] MEDS ORDERED: BUPIVACAINE HCL/PF 0.25% (2.5MG/ML) 10 ML VIAL ONE (13:17)
[2024-01-13] MEDS ORDERED: GENTAMICIN SO4 80 MG/2 ML VIAL ONE (13:17)
[2024-01-13] MEDS: LIDOCAINE 1%/EPI 1:100000 (20 ML MULTI DOSE VIAL) IJ ONE (14:13)
[2024-01-13] MEDS: LIDOCAINE HCL 1%, 10 MG/ML (20ML VIAL) NR ONE (14:13)
[2024-01-13] MEDS ORDERED: PROPOFOL 20 ML ONE ×3 (14:14→16:50)
[2024-01-13] MEDS ORDERED: MIDAZOLAM HCL 2 MG/2 ML SINGLE DOSE VIAL ONE (14:14)
[2024-01-13] MEDS: BUPIVACAINE HCL/PF 0.25% (2.5MG/ML) 10 ML VIAL IJ ONE ×2 (14:14)
[2024-01-13] MEDS ORDERED: EPINEPHrine/PF 1 MG/1 ML (1:1,000) AMPULE ONE (15:26)
[2024-01-13] MEDS ORDERED: LIDOCAINE 1%/EPI 1:100000 (20 ML MULTI DOSE VIAL) ONE (15:27)
[2024-01-13] MEDS ORDERED: DEXAMETHASONE SOD PHOSPHATE 4 MG/1 ML VIAL ONE (15:29)
[2024-01-13] MEDS ORDERED: ONDANSETRON 4 MG/2 ML VIAL ONE (15:29)
[2024-01-13] MEDS ORDERED: PHENYLEPHRINE HCL 10 MG/1 ML SINGLE DOSE VIAL ONE (15:32)
[2024-01-13] MEDS ORDERED: KETAMINE HCL 200 MG/20 ML VIAL ONE (16:00)
[2024-01-13] MEDS ORDERED: MUPIROCIN 2% TOPICAL OINTMENT 22 GM TUBE TP ONE (17:00)
[2024-01-13] MEDS ORDERED: LACTATED RINGERS SOLUTION 1,000 ML IV SCH ×2 (18:00→19:25)
[2024-01-13] MEDS: traMADol HCL 50 MG TABLET PO PRN (20:47)
[2024-01-13] MEDS: ATORVASTATIN CA 80 MG TABLET (FP) PO SCH (21:40)
[2024-01-13] MEDS: SACUBITRIL/VALSARTAN 49 MG-51 MG TABLET PO SCH (21:40)
[2024-01-13] MEDS: MAGNESIUM OXIDE 400 MG TABLET (FP) PO SCH (21:41)
[2024-01-13] MEDS: hydrALAZINE HCL 25 MG TABLET (FP) PO SCH (21:41)
[2024-01-13] MEDS: INSULIN ASPART SLIDING SCALE (NOVOLOG) 1 VIAL SQ SCH (21:41)
[2024-01-14 00:13] VITALS: RESP 18
[2024-01-14] MEDS: PIPERACILLIN/TAZOB 4.5 GM 4.5 GM in DEXTROSE 5%-WATER 100 ML IVPB SCH (02:31)
[2024-01-14] MEDS: EMPAGLIFLOZIN (JARDIANCE) 25 MG TABLET PO SCH (07:20)
[2024-01-14] MEDS: FUROSEMIDE 40 MG TABLET (FP) PO SCH ×2 (10:14→15:44)
[2024-01-14] MEDS: PIPERACILLIN/TAZOB 4.5 GM 4.5 GM/100 ML BAG IVPB SCH (18:12)
[2024-01-15] MEDS: FUROSEMIDE 40 MG TABLET (FP) PO SCH (09:27)
[2024-01-15] MEDS: ACETAMINOPHEN 325 MG TABLET (FP) PO PRN (10:04)
[2024-01-15 13:13] VITALS: PULSE 63
[2024-01-15 15:23] VITALS: BP 145/92; TEMP 99
== END 2024-01-15 16:47 | disposition home or self-care (01) | DRG 574 ==
LOC: JER 08:15 → JERBED 10:59 → J6S 19:24
PROVIDERS: ADMIT Internal Medicine; ATTEND Internal Medicine
PROC: 0HBLXZZ Excision of Left Lower Leg Skin, External Approach (ICD-10-PCS; principal; 2024-01-15)
PROC: 0HRKX74 Replacement of Right Lower Leg Skin with Autologous Tissue Substitute, Partial Thickness, External Approach (ICD-10-PCS; 2024-01-15)
PROC: 0HRLX74 Replacement of Left Lower Leg Skin with Autologous Tissue Substitute, Partial Thickness, External Approach (ICD-10-PCS; 2024-01-15)
PROC: 0YBD0ZZ Excision of Left Upper Leg, Open Approach (ICD-10-PCS; 2024-01-15)
PROC: 0HRMXK3 Replacement of Right Foot Skin with Nonautologous Tissue Substitute, Full Thickness, External Approach (ICD-10-PCS; 2024-01-15)
PROC: 0HBKXZZ Excision of Right Lower Leg Skin, External Approach (ICD-10-PCS; 2024-01-15)
PROC: 0HBNXZZ Excision of Left Foot Skin, External Approach (ICD-10-PCS; 2024-01-15)
DX: L03.115 Cellulitis of right lower limb (principal); I50.32 Chronic diastolic (congestive) heart failure; L97.818 Non-pressure chronic ulcer of other part of right lower leg with other specified severity; L97.828 Non-pressure chronic ulcer of other part of left lower leg with other specified severity; L02.619 Cutaneous abscess of unspecified foot; E11.51 Type 2 diabetes mellitus with diabetic peripheral angiopathy without gangrene; I48.91 Unspecified atrial fibrillation; I11.0 Hypertensive heart disease with heart failure; E11.40 Type 2 diabetes mellitus with diabetic neuropathy, unspecified; I25.10 Atherosclerotic heart disease of native coronary artery without angina pectoris; L13.9 Bullous disorder, unspecified; I83.018 Varicose veins of right lower extremity with ulcer other part of lower leg; I83.028 Varicose veins of left lower extremity with ulcer other part of lower leg; R60.0 Localized edema; E66.9 Obesity, unspecified; Z68.34 Body mass index [BMI] 34.0-34.9, adult; E78.5 Hyperlipidemia, unspecified; Z95.5 Presence of coronary angioplasty implant and graft
CPT/HCPCS: 36415; 71045-TC-FY; 73660-TC-FY; 73718-TC-RT; 80053; 82962; 83735; 84100; 85025; 85610; 85651; 86140; 87040; 87070; 87186; 87205; 88304-TC; 93005; 93010; 94760; 99285-25; G0463-25; J3370; Q4121